=== PATIENT | male | born 1965 | race Caucasian/White ===

== ENCOUNTER → 2019-06-07 | Outpatient (CLI) | payer BC ==
[~2019-06-07] VITALS: Ht 190.5 cm; Wt 140.9 kg
[~2019-06-07] MED LIST: CELEXA 20MG20 MG/TA1 PO; LISINOPRIL40 MG PO; WELLBUTRIN XL300 M1 PO
[2019-06-07 15:18] VITALS: BP 84/50
[2019-06-07 15:28] VITALS: BP 84/50
[2019-06-07 15:54] LABS: EOS # 0.1 (0.04-0.40); EOS % 1.1 % (0.0-4.0); HEMATOCRIT 47.4 % (42.0-52.0); HEMOGLOBIN 15.5 g/dL (13.5-18.0); LYMPH# 2.6 (1.50-4.00); MEAN CELL VOLUME 87 fl (78-100); MEAN CORPUSCULAR HEMOGLOBIN 29 pg (27-31); MEAN CORPUSCULAR HGB CONC 33 g/dL (33-37); MEAN PLATELET VOLUME 11.5 fl (7.4-10.4); MONO # 1.5 (0.20-0.80); NEU # 8.6 (1.40-6.50); PLATELET COUNT 208 K/mm3 (130-400); RED BLOOD COUNT 5.44 M/mm3 (4.20-5.60); RED CELL DISTRIBUTION WIDTH 14.1 % (11.5-14.5)
[2019-06-07 16:27] LABS: ALBUMIN 4.4 g/dL (3.5-5.0); POTASSIUM 3.6 mmol/L (3.5-5.1); SODIUM 138 mmol/L (136-145)
[2019-06-07 16:28] LABS: CALCIUM 9.3 mg/dL (8.3-10.5)
[2019-06-07 16:29] LABS: GLUCOSE 97 mg/dL (75-110); TOTAL PROTEIN 8.3 g/dL (6.4-8.3)
[2019-06-07 16:30] LABS: CARBON DIOXIDE 20 mmol/L (22-29)
[2019-06-07 16:31] LABS: TOTAL BILIRUBIN 0.8 mg/dL (0.2-1.2)
[2019-06-07 16:34] LABS: AST-SGOT 18 U/L (5-34)
[2019-06-07 16:36] LABS: ALT/SGPT 29 U/L (0-55)
[2019-06-07 16:38] VITALS: BP 86/55
[2019-06-07 16:51] LABS: TROPONIN-I < 0.03 ng/mL (<0.030)
[2019-06-07 18:16] LABS: URINE APPEARANCE HAZY; URINE BILIRUBIN NEGATIVE (NEGATIVE); URINE COLOR DARK YELLOW; URINE GLUCOSE NEGATIVE (NEGATIVE); URINE KETONE TR (NEGATIVE); URINE PROTEIN(semi-quant) 2+ mg/dL (NEGATIVE)
[2019-06-07 18:17] LABS: URINE BLOOD NEGATIVE (NEGATIVE); URINE LEUKOCYTE ESTERASE NEGATIVE (NEGATIVE); URINE NITRATE NEGATIVE (NEGATIVE); URINE UROBILINOGEN NORMAL (NORMAL)
[2019-06-07 18:18] LABS: URINE MUCUS PRESENT (NOT PRESENT)
== END ==
LOC: AMSURD 15:06
PROVIDERS: Nurse Practitioner
DX: I95.9 Hypotension, unspecified (principal); R42 Dizziness and giddiness; T67.5XXA Heat exhaustion, unspecified, initial encounter
CPT/HCPCS: J7030